=== PATIENT | male | born 1980 | race Two or more races ===

== ENCOUNTER 2021-02-01 16:01 | Inpatient (IN) | payer MEDICAID ==
[~2021-02-01] VITALS: Ht 160 cm; Wt 62.5 kg
[2021-02-01] MEDS ORDERED: HALOPERIDOL 5 MG TABLET PO PRN (21:45)
[2021-02-01] MEDS ORDERED: ZOLPIDEM TARTRATE 10 MG TABLET PO PRN (21:45)
[2021-02-01] MEDS ORDERED: LORazepam 2 MG TABLET PO PRN (21:45)
[2021-02-01] MEDS ORDERED: PNEUMOCOCCAL VACCINE POLYVALENT 0.5 ML VIAL [PPSV23] IM. ONE (22:45)
[2021-02-01] MEDS ORDERED: SUCR1TAB28 PO (22:49)
[2021-02-02] VITALS (11 sets, daily range): BP systolic 100–154; BP diastolic 66–106
[2021-02-02 07:38] LABS: BASOPHILS % (AUTO) 0.6 % (0.0-2.0); HEMATOCRIT 43.9 % (41-53); LYMPHOCYTES # (AUTO) 0.8 K/uL (1.0-4.8); LYMPHOCYTES % (AUTO) 18.8 % (22.0-44.0); MEAN CORPUSCULAR HEMOGLOBIN 35.8 pg (26.0-34.0); MEAN CORPUSCULAR HGB CONC 34.2 G/dL (31.0-37.0); MEAN CORPUSCULAR VOLUME 105 fL (80-100); MONOCYTES # (AUTO) 0.6 K/uL (0.1-1.0); MONOCYTES % (AUTO) 14.9 % (2.0-9.0); NEUTROPHILS # (AUTO) 2.6 K/uL (1.8-7.7); NEUTROPHILS % (AUTO) 63.7 % (40.0-70.0); PLATELET COUNT (AUTO) 128 K/uL (150-450); RED CELL DISTRIBUTION WIDTH 12.4 % (11.5-14.5)
[2021-02-02 08:02] LABS: ALANINE AMINOTRANSFERASE 313 U/L (12-78); ALBUMIN 3.9 g/dL (3.4-5.0); ALKALINE PHOSPHATASE 63 U/L (46-116); ANION GAP 11 mmol/L (8-16); ASPARTATE AMINOTRANSFERASE 163 U/L (15-37); BILIRUBIN,TOTAL 1.3 mg/dL (0.1-1.0); CALCIUM, TOTAL 9.1 mg/dL (8.8-10.5); CARBON DIOXIDE 28 mmol/L (22-29); CHLORIDE 98 mmol/L (98-107); CHOL/HDL RATIO 2.8 (4.2-7.3); CHOLESTEROL 278 mg/dL (131-200); CREATININE 1.01 mg/dL (0.60-1.30); GLOMERULAR FILTR. RATE CALC > 60 mL/min (>60); GLUCOSE,RANDOM 77 mg/dL (70-110); HDL CHOLESTEROL 101 mg/dL (40-60); LDL CHOL (CALC.) 162 mg/dL (0-130); POTASSIUM 4.5 mmol/L (3.5-5.1); SODIUM SERUM 137 mmol/L (136-145); THYROID STIMULATING HORMONE 2.51 uIU/mL (0.36-3.74); TOTAL PROTEIN, SERUM 7.5 g/dL (6.4-8.2); TRIGLYCERIDES 74 mg/dL (15-150); UREA NITROGEN, BLOOD 16 mg/dL (7-18)
[2021-02-02] MEDS ORDERED: LORazepam 2 MG TABLET PO PRN (10:45)
[2021-02-02] MEDS: SERTRALINE HCL 50 MG TABLET PO SCH (13:14)
[2021-02-02] MEDS: LORazepam 2 MG TABLET PO SCH (13:14)
[2021-02-02] MEDS: PRAZOSIN HCL 1 MG CAPSULE PO SCH (21:03)
[2021-02-03] VITALS (9 sets, daily range): BP systolic 100–121; BP diastolic 68–84
[2021-02-03] MEDS ORDERED: CYANOCOBALAMIN 1,000 MCG/ML VIAL IM ONE (01:00)
[2021-02-03] MEDS ORDERED: LORazepam 2 MG TABLET PO PRN (07:00)
[2021-02-03] MEDS: LORazepam 2 MG TABLET PO SCH ×4 (08:46→21:02)
[2021-02-03] MEDS: MULTIVITAMINS WITH MINERALS, THERAPEUTIC TABLET PO SCH (08:46)
[2021-02-03] MEDS: FOLIC ACID 1 MG TABLET PO SCH (08:47)
[2021-02-03] MEDS: THIAMINE 100 MG TABLET PO SCH ×2 (08:47→16:59)
[2021-02-03] MEDS: SERTRALINE HCL 50 MG TABLET PO SCH (08:47)
[2021-02-03] MEDS: PRAZOSIN HCL 1 MG CAPSULE PO SCH (21:02)
[2021-02-04 01:30] VITALS: BP 102/67
[2021-02-04 05:51] VITALS: BP 123/78
[2021-02-04] MEDS: FOLIC ACID 1 MG TABLET PO SCH (08:05)
[2021-02-04] MEDS: THIAMINE 100 MG TABLET PO SCH (08:05)
[2021-02-04] MEDS: SERTRALINE HCL 50 MG TABLET PO SCH (08:05)
[2021-02-04] MEDS: MULTIVITAMINS WITH MINERALS, THERAPEUTIC TABLET PO SCH (08:05)
[2021-02-04 08:53] VITALS: BP 108/69
[2021-02-04] MEDS ORDERED: PRAZ1 PO (11:07)
[2021-02-04] MEDS: LORazepam 2 MG TABLET PO SCH (12:53)
[2021-02-05] MEDS ORDERED: LORazepam 1 MG TABLET PO PRN (07:00)
[2021-02-05] MEDS ORDERED: LORazepam 1 MG TABLET PO SCH (09:00)
[2021-02-06] MEDS ORDERED: LORazepam 1 MG TABLET PO PRN (07:00)
== END 2021-02-04 12:30 | disposition home or self-care (01) | DRG 751 ==
LOC: B3A 22:12
DX: F33.2 Major depressive disorder, recurrent severe without psychotic features (principal); R45.851 Suicidal ideations; K73.9 Chronic hepatitis, unspecified; E78.5 Hyperlipidemia, unspecified; F43.12 Post-traumatic stress disorder, chronic; G47.00 Insomnia, unspecified; I10 Essential (primary) hypertension; K59.00 Constipation, unspecified; Z79.899 Other long term (current) drug therapy
CPT/HCPCS: 80053; 80061; 84439; 84443; 85025; 90732; G0480; J3420